=== PATIENT | male | born 1970 | race Caucasian/White ===

== ENCOUNTER 2016-12-08 04:22 | Observation (INO) | payer OTHER ==
[2016-11-28 14:20] LABS: HEMOGLOBIN 16.3 g/dL (13.6-17.8)
[2016-11-28 14:34] LABS: BUN (BLOOD UREA NITROGEN) 3 MG/DL (6-23); CHLORIDE, SERUM 97 MMOL/L (96-112); CO2 (CARBON DIOXIDE) 28 MMOL/L (24-34); GFR AFRICAN AMERICAN 117 ML/MIN (>=60); GFR NON AFRICAN AMERICAN 101 ML/MIN (>=60); POTASSIUM, SERUM 3.8 MMOL/L (3.5-5.3)
[2016-11-28 14:35] LABS: CALCIUM, SERUM 8.3 MG/DL (8.5-10.4); GLUCOSE, SERUM 78 MG/DL (60-99); SODIUM, SERUM 130 MMOL/L (135-148)
--- NOTE | ~2016-12-08 | OP ---
Record Of Operation [facility] [address] [place]. [address] NAME: MARK BARRIOS : 68 STATUS : ADM IN PAT#: [id number] AGE: 46 ADM/REG DATE : 12/08/16 MR#: [id number] REPORT SERV DATE: 12/08/16 DICTATED BY: FERNANDO NAIK DATE: 12/08/16 REPORT STATUS : Draft TRANSCRIBED BY: MODL DATE: 12/08/16 DATE OF PROCEDURE: 12/08/2016 PREOPERATIVE DIAGNOSIS: Left hip heterotopic ossification. POSTOPERATIVE DIAGNOSIS: Left hip heterotopic ossification. PROCEDURE: Left hip heterotopic ossification resection. 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 DESCRIPTION OF PROCEDURE: The patient was taken to the operating room and placed supine on the table in normal fashion without incident. General anesthetic was induced per the anesthesiologist. Patient was carefully positioned, padded, prepped, and draped in normal sterile fashion. Sharp dissection was made through the majority of the old straight lateral incision with electrocautery through the fat. The IT band split in line with its fibers. I painstakingly identified a very large focus of heterotopic bone laterally and then extended anteriorly and posteriorly and meticulously debrided this from soft tissue trying to identify normal bone versus this abnormal bone with an osteotome, rongeur, etc. There was some necrotic bone that I sent for cultures. It did not look like purulence. Wound was copiously irrigated. Bone wax was used to try to stop any bleeding laterally, also filled the area with TXA thinking meticulous hemostasis with further reduce the risk of recurrence. The wound was then closed in a layered fashion over a drain. COMPLICATIONS: None. SPECIMENS: Cultures. BLOOD LOSS: About 50 mL. WTB/MODL Pablito Naik M.D. / [id number] CC: Mira Tan M.D.
[~2016-12-08 04:22] MED LIST: ASAB PO; C1 PO; C5 PO; CO Q-10100 MG PO; COREG12 PO; COREG6 PO; CYANO1000T PO; DEPO-TESTOS100 MG/ML IM; DIOV80 PO; DURICEF PO; FEMARA PO; FISH-EPA1000 MG PO; FLECAINIDE PO; FLECAINIDE150 MG PO; FLEX PO; I10 PO; LEXAPRO20 PO; LOP25 PO; MAGOX4 PO; METANX PO; METHOC750B PO; MULTI-VIT HP PO; NORCO1 TA1 PO; NORCO1 TA2 PO; PERCOCET1 TA4 PO; PRIN5 PO; SYN.05 PO; SYN88 PO; SYNTHROID; TAMBOCOR150 MG PO; TESTOSTERONE INJ SC; TOPAMAX25 PO; VITA10 PO; VITAMIN D1000 UNI1 PO; VITAMIN E PO; VITE1000 PO; X5 PO; XANAX1 MG PO; ZESTRIL20 MG PO; [UNRECOGNIZED DRUG - OTHER] PO
[2016-12-08 05:48] LABS: ASCORBIC ACID (UR NOT ORDER) NEG (NEG); BILIRUBIN, URINE NEGATIVE (NEG); KETONE, URINE NEGATIVE (NEG); LEUKOCYTE ESTERASE(NOT OR NEG (NEG); WBC (NOT ORDERED) (RFLEX) 5 (0-5)
[2016-12-08 05:49] LABS: BASOPHILS 0.2 %; BASOPHILS ABSOLUTE 0.01 10/3/uL (0.0-0.16); EOSINOPHILS 6.4 %; EOSINOPHILS ABSOLUTE 0.37 10/3/uL (0.0-0.53); HEMATOCRIT 49.3 % (40.0-51.0); HEMOGLOBIN 17.2 g/dL (13.6-17.8); IMMATURE GRANULOCYTES 0.3 %; IMMATURE GRANULOCYTES ABSOLUTE 0.02 10/3/uL (0.0-0.11); LYMPHOCYTES 20.7 %; MEAN PLATELET VOLUME 8.5 fL (9.2-13.0); MONOCYTES 13.4 %; MONOCYTES ABSOLUTE 0.78 10/3/uL (0.21-1.20); NEUTROPHILS ABSOLUTE 3.43 10/3/uL (2.02-8.40); RBC DISTRIBUTION WIDTH 14.2 % (12.0-16.0); RED CELL COUNT 5.52 10/6/uL (4.7-6.1)
[2016-12-08 05:50] LABS: MANUAL DIFF NO %; MEAN CORPUS HGB CONC 34.9 g/dL (32.0-36.0); MEAN CORPUSCULAR HEMOGLOB 31.2 pg (26.0-34.0); MEAN CORPUSCULAR VOLUME 89.3 fL (80-100); PLATELET COUNT 173 10/3/uL (150-400); WHITE BLOOD CELLS 5.8 10/3/uL (4.5-10.5)
[2016-12-08 06:11] LABS: A/G RATIO 0.7 (0.7-1.9); ALBUMIN 3.3 G/DL (3.5-5.0); BUN (BLOOD UREA NITROGEN) 5 MG/DL (6-23); CALCIUM, SERUM 8.7 MG/DL (8.5-10.4); CHLORIDE, SERUM 99 MMOL/L (96-112); CO2 (CARBON DIOXIDE) 27 MMOL/L (24-34); CREATININE 0.96 MG/DL (0.70-1.30); GFR AFRICAN AMERICAN 109 ML/MIN (>=60); GFR NON AFRICAN AMERICAN 94 ML/MIN (>=60); POTASSIUM, SERUM 3.7 MMOL/L (3.5-5.3); SGOT(AST) 98 U/L (5-40); SGPT(ALT) 63 U/L (5-65); SODIUM, SERUM 136 MMOL/L (135-148); TOTAL BILIRUBIN 0.9 MG/DL (0-1.2); TOTAL PROTEIN 8.3 G/DL (6.0-8.5)
[2016-12-08 06:13] LABS: ALKALINE PHOSPHATASE 193 U/L (45-117); GLUCOSE, SERUM 97 MG/DL (60-99)
[2016-12-08 12:34] LABS: INTERNATIONAL NORMAL RATI 1.1 UNITS (-)
[2016-12-09 05:17] LABS: INTERNATIONAL NORMAL RATI 1.1 UNITS (-); PROTIME (NOT ORD) 14.5 SEC (12.0-14.5)
[2016-12-09 05:27] LABS: CALCIUM, SERUM 8.9 MG/DL (8.5-10.4); CHLORIDE, SERUM 97 MMOL/L (96-112); CO2 (CARBON DIOXIDE) 29 MMOL/L (24-34); CREATININE 0.92 MG/DL (0.70-1.30); GFR AFRICAN AMERICAN 114 ML/MIN (>=60); GFR NON AFRICAN AMERICAN 99 ML/MIN (>=60); HEMATOCRIT 38.6 % (40.0-51.0); HEMOGLOBIN 13.1 g/dL (13.6-17.8); SODIUM, SERUM 132 MMOL/L (135-148)
[2016-12-09 05:34] LABS: BUN (BLOOD UREA NITROGEN) 12 MG/DL (6-23); GLUCOSE, SERUM 125 MG/DL (60-99); POTASSIUM, SERUM 4.6 MMOL/L (3.5-5.3)
[2016-12-09] MEDS ORDERED: PCET PO (16:40)
[2017-01-26] MEDS ORDERED: CORDARONE PO (12:36)
[2017-01-26] MEDS ORDERED: ASAB PO (12:37)
[2017-01-26] MEDS ORDERED: ELIQUIS 5 MG TAB5 MG PO (12:37)
[2017-01-26] MEDS ORDERED: NORCO1 TAB PO (12:37)
[2017-01-26] MEDS ORDERED: PRADAXA150 MG PO (12:51)
[2017-01-26] MEDS ORDERED: CEFZIL500 MG PO (12:53)
== END 2016-12-09 17:14 | disposition home or self-care (01) ==
LOC: SDC 04:22 → 3SO 11:20
PROVIDERS: Specialist
PROC: 0JBM0ZZ Excision of Left Upper Leg Subcutaneous Tissue and Fascia, Open Approach (ICD-10-PCS; principal; 2016-12-08 05:45)
DX: M61.58 Other ossification of muscle, other site (principal); I48.91 Unspecified atrial fibrillation; I10 Essential (primary) hypertension; E03.9 Hypothyroidism, unspecified; K21.9 Gastro-esophageal reflux disease without esophagitis; Z79.899 Other long term (current) drug therapy; Z98.890 Other specified postprocedural states
CPT/HCPCS: 71010; 80048; 80053; 81001; 85014; 85018; 85025; 85610; 87015; 87070; 87075; 87102; 87116; 87205; 88304; 88311; 93005; 96374; 96375; 96376; 97161-GP; 97165-GO; A9270-GY; G0378; J0360; J0690; J1170; J1885; J2250; J2270; J2370; J2405; J2710; J2795; J3010

== ENCOUNTER 2016-12-20 19:11 | Emergency (ER) | payer OTHER ==
[2016-12-20 17:29] LABS: BASOPHILS 0.1 %; BASOPHILS ABSOLUTE 0.01 10/3/uL (0.0-0.16); EOSINOPHILS 1.2 %; HEMATOCRIT 38.2 % (40.0-51.0); HEMOGLOBIN 13.1 g/dL (13.6-17.8); IMMATURE GRANULOCYTES 0.5 %; IMMATURE GRANULOCYTES ABSOLUTE 0.04 10/3/uL (0.0-0.11); LYMPHOCYTES 8.3 %; LYMPHOCYTES ABSOLUTE 0.71 10/3/uL (0.67-4.30); MANUAL DIFF NO %; MEAN CORPUS HGB CONC 34.3 g/dL (32.0-36.0); MEAN CORPUSCULAR HEMOGLOB 30.5 pg (26.0-34.0); MEAN CORPUSCULAR VOLUME 88.8 fL (80-100); MEAN PLATELET VOLUME 8.2 fL (9.2-13.0); MONOCYTES 8.1 %; MONOCYTES ABSOLUTE 0.69 10/3/uL (0.21-1.20); NEUTROPHILS 81.8 %; NEUTROPHILS ABSOLUTE 6.97 10/3/uL (2.02-8.40); PLATELET COUNT 245 10/3/uL (150-400); RBC DISTRIBUTION WIDTH 14.3 % (12.0-16.0); WHITE BLOOD CELLS 8.5 10/3/uL (4.5-10.5)
[2016-12-20 17:36] LABS: INTERNATIONAL NORMAL RATI 1.1 UNITS (-); PARTIAL THROMBO TIME 30.4 SEC (22.5-37.2); PROTIME (NOT ORD) 13.7 SEC (12.0-14.5)
[2016-12-20 17:49] LABS: CALCIUM, SERUM 9.3 MG/DL (8.5-10.4); CHEST PAIN PROFILE TAT 0 Hrs 24 Mins; CHLORIDE, SERUM 99 MMOL/L (96-112); CO2 (CARBON DIOXIDE) 28 MMOL/L (24-34); CREATININE 0.84 MG/DL (0.70-1.30); GFR AFRICAN AMERICAN 121 ML/MIN (>=60); GFR NON AFRICAN AMERICAN 104 ML/MIN (>=60); GLUCOSE, SERUM 104 MG/DL (60-99); SODIUM, SERUM 135 MMOL/L (135-148); TROPONIN I <0.02 NG/ML (<0.05)
[2016-12-20 17:51] LABS: BUN (BLOOD UREA NITROGEN) 4 MG/DL (6-23); POTASSIUM, SERUM 3.6 MMOL/L (3.5-5.3)
[~2016-12-20 19:11] MED LIST changes: +PCET PO
[2017-01-26] MEDS ORDERED: CORDARONE PO (12:36)
[2017-01-26] MEDS ORDERED: NORCO1 TAB PO (12:37)
[2017-01-26] MEDS ORDERED: ELIQUIS 5 MG TAB5 MG PO (12:37)
[2017-01-26] MEDS ORDERED: ASAB PO (12:37)
[2017-01-26] MEDS ORDERED: PRADAXA150 MG PO (12:51)
[2017-01-26] MEDS ORDERED: CEFZIL500 MG PO (12:53)
== END 2016-12-20 21:09 | disposition home or self-care (01) ==
LOC: ER 19:11
PROVIDERS: Specialist
DX: M79.89 Other specified soft tissue disorders (principal); R06.00 Dyspnea, unspecified; F41.9 Anxiety disorder, unspecified; K21.9 Gastro-esophageal reflux disease without esophagitis; Z79.899 Other long term (current) drug therapy
CPT/HCPCS: 71010; 71275; 80048; 83735; 84484; 85025; 85610; 85730; 93005; 93971; 96374; 96375; 96376; 99285; J1885; Q9967